=== PATIENT | female | born 1955 | race Caucasian/White ===

== ENCOUNTER 2023-11-15 21:09 | Emergency (ER) | payer BC ==
[~2023-11-15] VITALS: Ht 152.4 cm; Wt 63.5 kg
[2023-11-15] MEDS ORDERED: CLONIDINE HCL 0.1 MG TABLET PO ONE (23:45)
[2023-11-16] MEDS ORDERED: CLONIDINE HCL 0.1 MG TABLET ONE (00:09)
[2023-11-16 01:01] VITALS: BP 167/73; TEMP 98; O2SAT 97
== END 2023-11-16 00:10 | disposition home or self-care (01) ==
LOC: ER 21:21
DX: J20.9 Acute bronchitis, unspecified (principal); I10 Essential (primary) hypertension; E11.9 Type 2 diabetes mellitus without complications; Z20.822 Contact with and (suspected) exposure to COVID-19
CPT/HCPCS: 71045; A4606; A4663